=== PATIENT | born 1995 ===

== ENCOUNTER 2019-10-13 11:33 | Outpatient (REF) | payer SELFPAY ==
[2019-10-13 17:23] LABS: Alanine Aminotransferase 16 U/L (0-33); Alkaline Phosphatase 119 IU/L (35-105); Amylase 107 U/L (28-100); Anion Gap 32.6 (5-19); Aspartate Amino Transferase 43 U/L (0-32); Blood Urea Nitrogen 5 mg/dL (6-20); Calcium 12.4 mg/Dl (8.6-10.0); Carbon Dioxide 10 mmol/L (22-29); Chloride 82 mmol/L (98-107); Chol HDL Ratio 4.29 mg/dL (0.0-4.40); Cholesterol 283 mg/dL (0-200); Creatine Phosphokinase 214 U/L (26-192); Gamma Glutamyl Transferase 38 U/L (36-); Glomerular Filtration Rate 165.5 mL/min (90-130); Glucose 59 mg/dL (74-109); HDL Cholesterol 66 mg/dL (60-100); Iron 196 ug/dL (37-145); LDL Cholesterol Calculated 184 mg/dL (50-129); LDL HDL Ratio 2.79 RATIO (0.00-3.22); Lipase 60 U/L (13-60); Magnesium 1.4 mg/dL (1.7-2.3); Phosphorus 1.7 mg/dL (2.5-4.5); Sodium 122 mmol/L (136-145); Total Bilirubin 0.6 mg/dL (0.15-1.2); Total Iron Binding Capacity 575 mg/dL; Triglycerides 163 mg/dL (0-150); Unsaturated Iron Binding 379 ug/dL (112-347); Uric Acid 1.7 mg/dL (2.4-5.7)
[2019-10-13 17:42] LABS: Tumor Marker Alpha Fetoprotein 5.2 ng/mL (0-8.3)
[2019-10-13 18:19] LABS: Free T4 Free Thyroxine 1.68 ng/dL (0.82-1.77)
[2019-10-13 18:39] LABS: Albumin Level 7.8 g/dL (3.5-5.2); Globulin 5.3 g/dL (1.3-4.6); Total Protein 13.1 g/dL (6.6-8.7)
[2019-10-14 13:44] LABS: Lactic Acid < 0.2 mmol/L (0.5-2.2)
[2019-10-20 10:12] LABS: Bilirubin Direct < 0.20 mg/dL (0.00-0.30)
[2019-10-20 10:20] LABS: Potassium 2.6 mmol/L (3.5-5.1)
[2019-10-20 15:36] LABS: Lactate Dehydrogenase 165 U/L (135-214); T3 Free 2.8 PG/ML (2.0-4.4)
[2019-10-20 17:13] LABS: LDL Cholesterol 174 (0-100)
== END 2019-10-13 11:34 | disposition home or self-care (01) ==
LOC: LAB 11:33
PROVIDERS: Visit Provider Dermatology
DX: Z01.89 Encounter for other specified special examinations (principal)
CPT/HCPCS: 80053; 80061; 82105; 82150; 82248; 82533; 82550; 82977; 83540; 83550; 83605; 83690; 83735; 84100; 84439; 84443; 84550